=== PATIENT | male | born 1970 | race Caucasian/White ===

== ENCOUNTER 2021-01-15 21:56 | Emergency (ER) | payer OTHER, SELFPAY ==
[2021-01-15 21:57] VITALS: BP 139/91; PULSE 115; RESP 16; TEMP 36.6; O2SAT 96; BMI 29.6
[2021-01-15 22:04] VITALS: O2SAT 90
--- NOTE | 2021-01-15 22:40 | EDS_ITS ---
HPI History of Present Illness Chief Complaint: Fever Informant: patient and spouse/S.O. Onset/Context/Timing Onset: Days Context: Gradual Onset Timing: Continuous Current Severity: Mild Maximum Severity: Mild Narrative Narrative: 50-year-old male no seen past medical history. Prior echo and appendectomy at 15 years old. Patient is on no medications. States since Tuesday just has not felt well has been nauseated without vomiting. He is a low-grade temperature of 99-100. Has had decreased appetite. Mild cough no shortness of breath clear sputum. Mild diarrhea today no dysuria. Has not been hospitalized recently. Prior similar symptoms: No Recent Illness/Hospitalization: No PFSH PFSH Medical History no medical history no medical history Home Medications NK 01/15/21 [History Last Taken Unknown] dexamethasone [Decadron] 6 mg PO DAILY 10 Days #10 tab 01/15/21 [Rx Last Taken Unknown] ondansetron 4 mg PO Q8H PRN 4 Days #10 tab 01/15/21 [Rx Last Taken Unknown] Allergy/AdvReac Type Severity Reaction Status Date / Time No Known Allergies Allergy Verified 01/15/21 21:57 Social History Smoking Status: Never smoker ROS ROS ED ROS Narrative Fever and nausea. Review of Systems ROS Unobtainable: Denies due to encephalopathy Constitutional Constitutional ED: Reports fever(s) Eyes Eyes: Denies change in vision ENT ENT ED: Denies ear pain, rhinorrhea or sore throat Cardiovascular Cardiovascular: Denies chest pain Respiratory/Chest Respiratory/Chest: Reports cough and sputum; Denies dyspnea Gastrointestinal Gastrointestinal: Reports diarrhea and nausea; Denies abdominal pain or vomiting Genitourinary Genitourinary ED: Denies dysuria Musculoskeletal Musculoskeletal: Denies myalgias Integumentary Denies rash Neurologic Neurologic: Denies headache(s) Psychiatric Psychiatric: Denies depression Endocrine Endocrinology: Denies polyuria Allergic/Immunologic Allergic/Immunologic ED: Denies urticaria EXAM Physical Exam Narrative Exam Narrative: 30-year-old male no acute distress vital signs stable afebrile does not look septic or toxic. H EENT exam unremarkable. Neck nontender no lymphadenopathy. No meningismus. Lungs clear to auscultation. Heart regular rhythm rate about 115 no murmur. Abdomen soft nondistended normal bowel sounds no peritoneal signs. No localizing tenderness. No hernia or mass. No obstruction. Moving all 4 extremities. Nontender no edema. Back nontender. Skin no rashes. Neurologically awake and alert with no focal motor deficits. Const Vital Signs: 01/15/21 21:57 Temperature 97.8 F Temperature Source Temporal Pulse Rate 115 H Respiratory Rate 16 Blood Pressure 139/91 H Blood Pressure Mean 107 Pulse Ox 96 Oxygen Delivery Method Room Air Positive well nourished and well developed; Negative for obese, cachectic, contractures or unkempt General Appearance ED: well developed and NAD; Negative for unkempt, cachectic, contractures, cyanotic, diaphoretic or pallor Nutritional Appearance: Negative for cachectic or obese HEENT Reports moist mucous membranes Negative for trauma or tenderness Eyes PERRL and EOMs intact bilaterally General Eye ED: Negative for pale conjunctiva or scleral icterus Neck no lymphadenopathy, supple and no JVD General: Negative for tenderness Chest Wall inspection of chest normal and palpation of chest normal Resp normal respiratory effort and clear to auscultation bilaterally Auscultation: Negative for rales, rhonchi, wheezes or diminished lung sounds Cardio regular rhythm, S1 normal heart sound, S2 normal heart sound and no murmurs; Negative for regular rate Rate: tachycardic GI normal to inspection, nondistended, normoactive bowel sounds, non-tender, non- distended and no masses Inspection: Negative for abdominal distention Auscultation: normoactive bowel sounds; Negative for hyperactive bowel sounds Palpation: soft; Negative for tender, guarding or rebound tenderness present Back/Spine no CVA tenderness General Back: Negative for CVA tenderness Extremity normal to inspection General Extremety ED: Negative for edema or tenderness General Extremity: Negative for edema Neuro oriented x3 and no sensory deficits noted Sensorium / Orientation: alert; Negative for orientation impaired, lethargic or stuporous Motor Exam: strength 5/5 throughout Psych mental status grossly normal Appearance: Negative for unkempt Mood & Affect: Negative for depressed Skin no rashes or lesions noted and no wounds General Skin Exam: Negative for jaundice or pallor MDM MDM MDM Narrative Medical decision making narrative: Middle-age male with viral symptoms. We worked up for fever. Labs chest x-ray and urinalysis. To be treated with IV fluids and Zofran for nausea. Review patient is doing well. Will be discharged home on Decadron given a dose IV here prior to discharge. He will be written for prescription for Zofran for nausea and daily Decadron. He will be referred to the monoclonal antibody therapy center here at the hospital. They know to quarantine for 10 days and return if he is feeling worse. Lab Data Attestation: I reviewed the patient's lab results. Lab results narrative: Urinalysis shows no signs of infection. No nitrates nor white cells no bacteria. Electrolytes show sodium 132 gap of eight normal BUN and creatinine. Normal liver enzymes. CBC shows a white count 2.9 hemoglobin 1 5 platelets of 107. Labs: Laboratory Results - last 24 hr 01/15/21 01/15/21 01/15/21 22:42 23:00 23:00 WBC 2.9 L RBC 4.81 Hgb 15.8 Hct 44.1 MCV 91.7 MCH 32.8 H MCHC 35.8 RDW Std Deviation 40.0 RDW Coeff of Sushil 11.8 Plt Count 107 L MPV 9.3 Immature Gran % (Auto) 0.300 Neut % (Auto) 71.5 H Lymph % (Auto) 24.0 Ralls % (Auto) 4.2 Eos % (Auto) 0.0 Baso % (Auto) 0.0 Absolute Neuts (auto) 2.1 Absolute Lymphs (auto) 0.69 L Nucleated RBC % 0 Sodium 132 L Potassium 3.9 Chloride 98 Carbon Dioxide 26.0 Anion Gap 8 BUN 15 Creatinine 1.04 Estim Creat Clear Calc 75.83 Est GFR (MDRD) Af Amer 97 Est GFR (MDRD) Non-Af 80 BUN/Creatinine Ratio 14.4 Glucose 107 H Calcium 8.6 Total Bilirubin 0.50 AST 36 ALT 34 Alkaline Phosphatase 58 Total Protein 7.3 Albumin 3.4 Globulin 3.9 Albumin/Globulin Ratio 0.9 Urine Color Yellow Urine Clarity Clear Urine pH 6.0 Ur Specific [place] 1.020 Urine Protein 30 H Urine Glucose (UA) Normal Urine Ketones 50 H Urine Occult Blood Negative Urine Nitrite Negative Urine Bilirubin Negative Urine Urobilinogen 1 H Ur Leukocyte Esterase 25 H Urine RBC 0 SEEN Urine WBC 0-5 SEEN Ur Squamous Epith Cells 0 SEEN Urine Bacteria 0 SEEN Urine Mucus 0 SEEN Radiography Chest X-Ray - ED: 1 View, Read by ED Physician, Mediastinum, Bony Structures, No Acute Disease, Right Infiltrate and Left Infiltrate Diagnostic Testing: Clinical Impression(s) from Imaging Studies Chest X-Ray 01/15/21 23:00 IMPRESSION: Multifocal pneumonia. Electronically Signed: Brandon Obrien MD at 23:10 EST Tel , Service support , Chest x-ray, portable, single view interpreted by self and radiologist is consistent with Covid pneumonitis with bilateral infiltrates. Discharge Plan Triage Chief Complaint: Fever Other Complaint: Cough ED Provider: Fede Singh Dx/Rx/DC Orders Clinical Impression: COVID-19 Instructions: Human Coronaviruses Prescriptions: New dexamethasone [Decadron] 6 mg tablet 6 mg PO DAILY 10 Days Qty: 10 RF: 0 ondansetron 4 mg tablet,disintegrating 4 mg PO Q8H PRN (Reason: nausea and vomiting) 4 Days Qty: 10 RF: 0 No Action NK RF: 0 Other Ambulatory Orders: COVID Outpatient Monoclonal Antibody Referral (Routine) Timeframe: 1 Day Facility: [facility] - Location: [facility] Ordered By: Dr. Fede Singh Primary Care Provider: Care Physician,No Primary Referrals: Andrea Jaramillo MD [STAFF PHYSICIAN] - 1 Week if not improving Care Physician,No Primary [Primary Care Provider] - Activity Restrictions/Additional Instructions: Plenty of fluids and rest. Tylenol for fever. Decadron daily which is a steroid to help decrease inflammation in your lungs. The monoclonal antibody therapy center should call you by noon on Tuesday if they do not call the ER and we will connect you to them. For you to have this therapy needs to be done no later than Tuesday. Zofran as needed for nausea. Return if feeling a lot worse. Disposition Disposition: Home, Self Care
[2021-01-15] MEDS: 0.9% Normal Saline 1,000 ML 1000 ML IV (22:55)
[2021-01-15] MEDS: Ondansetron 4 MG/2 ML Vial IV (22:56)
--- NOTE | 2021-01-15 23:00 | RAD_ITS ---
STUDY: X-RAY CHEST REASON FOR EXAM: Male, 50 years old. Fever TECHNIQUE: Portable, upright, AP chest radiograph COMPARISON: None. FINDINGS: Patchy bilateral pulmonary opacities. There is no demonstrated pleural abnormality. Normal size heart. Normal mediastinum and lópez. Normal visualized pulmonary arteries. Normal visualized aortic arch and descending thoracic aorta. There is no demonstrated abnormality of the visualized soft tissue structures of the upper abdomen. RAD/Chest 1 View (Portable) IMPRESSION: Multifocal pneumonia. Electronically Signed: Brandon Obrien MD at 23:10 EST Tel , Service support ,
[2021-01-15 23:05] LABS: Bacteria 0 SEEN /hpf (None Seen); Mucous, Urine 0 SEEN /hpf (<or=2+); Red Blood Cells-Urine 0 SEEN /hpf (0-5); Squamous Epithelial Cells - UA 0 SEEN /hpf (0-5)
[2021-01-15 23:07] LABS: Absolute Lymphocyte Count 0.69 X10^3/uL (0.83-4.51); Absolute Neutrophil Count 2.1 X10^3/uL (2.0-7.7); Hematocrit 44.1 % (40-54); Hemoglobin 15.8 g/dL (13.0-16.5); Lymphocyte # 0.69 X10^3/ul (0.83-4.51); Mean Corp Hgb Conc 35.8 g/dL (32-36); Mean Corpuscular Hgb 32.8 pg (27.0-32.0); Mean Corpuscular Volume 91.7 fL (80-94); Mean Platelet Vol. 9.3 fl (6.2-12.0); Monocyte# 0.12 X10^3/uL; Monocyte% 4.2 % (0-10); NRBC Flagged by Analyzer 0 % (0-5); Neutrophil # 2.05 X10^3/uL (2.7-7.7); Neutrophil % 71.5 % (47-70); POSITIVE MORPHOLOGY YES; Platelet Count 107 K/mm3 (150-450); RBC Distribution Width CV 11.8 % (11.6-14.6); Red Blood Count 4.81 M/mm3 (4.6-6.2); White Blood Count 2.9 K/mm3 (4.4-11.0)
[2021-01-15 23:13] LABS: Color, Urine Yellow (Yellow); Glucose, Dipstick Normal (Normal); Ketone-Dipstick 50 mg/dl (Negative); Leukocyte Esterase-Dipstick 25 /ul (Negative); Nitrite-Dipstick Negative (Negative); Occult Blood-Urine Negative /ul (Negative); Protein-Dipstick 30 mg/dl (Negative); Urine Bilirubin Dipstick Negative (Negative); Urine Clarity Clear (Clear); Urine Urobilinogen 1 mg/dl (Normal)
[2021-01-15 23:23] LABS: White Blood Cells 0-5 SEEN /hpf (0-5)
[2021-01-15 23:28] LABS: ALB/GLOB Ratio 0.9 RATIO (0.9-2.4); AST(SGOT) 36 U/L (15-37); Alanine Aminotransfer ALT/SGPT 34 U/L (16-61); Albumin, Serum 3.4 g/dL (3.2-5.0); Alkaline Phosphatase 58 U/L (45-117); Anion Gap 8 (5-15); BUN 15 mg/dL (7-18); BUN/Creat Ratio 14.4 RATIO (10-20); Calcium,Total 8.6 mg/dL (8.5-10.1); Chloride 98 mmol/L (98-107); Creatinine, Serum 1.04 mg/dL (0.70-1.30); EST Glomerular Filtration Rate 80 mL/min (>60); Est Glom Filt Rate - Afr Amer 97 mL/min (>60); Estimated Creatinine Clearance 75.83 ml/min; Globulin 3.9 g/dL (2.2-4.2); Glucose 107 mg/dL (74-106); Potassium 3.9 mmol/L (3.5-5.1); Protein, Total 7.3 g/dL (6.4-8.2); Sodium Level 132 mmol/L (136-145)
[2021-01-15 23:43] LABS: Differential Indicated SCAN CRITERIA MET
[2021-01-16] MEDS: dexAMETHasone 10 MG/ML Vial IV (00:07)
== END 2021-01-16 00:29 | disposition home or self-care (01) ==
PROVIDERS: Emergency Provider Emergency Medicine
DX: U07.1 COVID-19 (principal); Z90.49 Acquired absence of other specified parts of digestive tract
CPT/HCPCS: 71045; 80053; 81001; 85025; 87426; 96361; 96374; 96375; 99283; J7030; A4216; J2405

== ENCOUNTER 2021-01-19 11:42 | Outpatient (CLI) | payer OTHER, SELFPAY ==
[2021-01-19 12:11] VITALS: BP 126/93; PULSE 87; RESP 16; TEMP 36.9; O2SAT 95; BMI 29.8
[2021-01-19] MEDS: 0.9% Saline Lock 10 ML Syringe IV (12:22)
[2021-01-19 12:59] VITALS: BP 140/94; PULSE 66; RESP 16; TEMP 37; O2SAT 97
[2021-01-19 13:59] VITALS: BP 133/93; PULSE 76; RESP 16; TEMP 37; O2SAT 98
== END 2021-01-19 14:01 | disposition home or self-care (01) ==
LOC: MS3OUT 11:45 → MS3 11:45
PROVIDERS: Referring Provider Nurse Practitioner Adult Health; Visit Provider Nurse Practitioner Adult Health
DX: Z23 Encounter for immunization (principal); U07.1 COVID-19
CPT/HCPCS: J7050; M0245; Q0245; A4216